=== PATIENT | male | born 1965 | race Caucasian/White ===

== ENCOUNTER 2019-04-07 09:33 | Outpatient (CLI) | payer OTHER ==
--- NOTE | 2019-04-07 11:49 | ULT ---
ULTRASOUND ABDOMEN: Date: 04/07/19 HISTORY: Lower abdominal pain. FINDINGS: The liver, spleen, gallbladder, kidneys, pancreas, urinary bladder, and visualized portions of the ao rta and IVC appear normal. The common duct measures 5 mm in diameter. No free fluid is seen. IMPRESSION: Normal exam. POS: [facility]
== END 2019-04-07 09:34 | disposition home or self-care (01) ==
LOC: ULT 09:33
PROVIDERS: ATTEND Nurse Practitioner Family
DX: R10.30 Lower abdominal pain, unspecified (principal)
CPT/HCPCS: 76856; 93975

== ENCOUNTER 2019-04-26 08:05 | Outpatient (CLI) | payer OTHER ==
--- NOTE | 2019-04-26 10:47 | CT ---
CT ABDOMEN AND PELVIS WITH ORAL AND IV CONTRAST: HISTORY: Mid abdominal pain. FINDINGS: The lung bases are clear. No calcified gallstones are seen. The liver, spleen, pancreas and adrenal g lands are normal. A tiny low density lesion is seen in either kidney, likely cyst. No free air, free fluid or lymphadenopathy is noted in the abdomen or pelvis. The small bowel loops are not abnormally dilated. A normal appearing appendix is seen. There are vasc ular calcifications without evidence of aneurysmal dilatation of the abdominal aorta. The prostate is enlarged. There are degenerative changes in the spine. IMPRESSION: No evidence of acute process. POS: [facility]
== END 2019-04-26 08:06 | disposition home or self-care (01) ==
LOC: BICCT 08:05
PROVIDERS: ATTEND Internal Medicine Gastroenterology
DX: Z12.11 Encounter for screening for malignant neoplasm of colon (principal); R10.30 Lower abdominal pain, unspecified
CPT/HCPCS: 74177

== ENCOUNTER 2019-11-21 08:13 | Outpatient (CLI) | payer OTHER ==
--- NOTE | 2019-11-21 09:46 | MRI ---
Exam: MRI thoracic spine without contrast HISTORY: Thoracic radiculopathy. FINDINGS: Appropriate T1 marrow signal intensity of the thoracic vertebra. Thoracic spine vertebral b araceli heights are maintained. No acute fractures. Mild changes along the superior and inferior endplate of T8, inferior endplate of T7, inferior endplate of T10, superior and inferior endplate of T11 and superior endplate of T12 likely represent chronic Schmorl's nodes. No significant STIR hyperintensity suggest edema. No significant STIR hyperintensity to suggest ligamentous injury Visualized mediastinum, lung parenchyma and solid organs of appropriate signal intensity Conus medullaris terminates at the breast L1 The thoracic cord has a normal size and signal intensity. No cord expansion. No cord malacia. Throughout the thoracic spine, no significant central canal stenosis or significant neural foraminal narrowing. IMPRESSION: No significant central canal stenosis or significant neural foraminal narrowing.
--- NOTE | 2019-11-21 10:15 | MRI ---
MRI lumbar spine noncontrast: HISTORY: Radiculopathy. Pain. COMPARISON: None FINDINGS: Appropriate T1 marrow signal intensity of the lumbar vertebra. Preserved vertebral body heights. No f racture. No significant STIR hyperintensity to suggest vertebral body edema or ligamentous injury. Appropriate signal intensity of the paraspinal muscles and solid organs. Conus medullaris terminates at the mid L1 level T12-L1:Adequate disc hydration. No posterior disc abnormality. No significant central canal stenosis or significant neural foraminal narrowing L1-L2:Adequate disc hydration. No posterior disc abnormality. No significant central canal stenosis o r significant neural foraminal narrowing L2-L3:Adequate disc hydration. Minimal left and right paracentral disc bulges. Encroachment upon bila teral subarticular zones, right greater than left. There is contact upon the traversing right L3 nerve root without significant mass effect or obscuration. Bilaterally, neural foramina are patent L3-L4:Minimal disc desiccation with minimal loss of disc space height. Broad-based disc bulge minimal ly flattens the ventral thecal sac. Mild ligamentum flavum thickening and facet hypertrophy. Trace amount of fluid in both facet joints. Disc material abuts but does not obscure either traversing L4 n erve root. Mild stenosis of the thecal sac. Mild bilateral neural foraminal narrowing due to disc material. L4-L5:Desiccation with moderate loss of disc space height. Broad-based disc bulge, ligament flavum th ickening and facet hypertrophy. Small amount of fluid in both facet joints. Mild stenosis of the thecal sac. Mass effect without obscuration the traversing right L5 nerve root. Mass effect and parti al obscuration the traversing left L5 nerve root. Moderate bilateral neural foraminal narrowing. L5-S1:Adequate disc hydration. Central disc herniation abuts the thecal sac. No significant central c anal stenosis. Moderate bilateral neural foraminal narrowing. IMPRESSION: Multilevel degenerative changes of the lumbar spine as detailed above.
== END 2019-11-21 08:14 | disposition home or self-care (01) ==
LOC: BICMRI 08:13
PROVIDERS: ATTEND Nurse Practitioner Family
DX: M54.15 Radiculopathy, thoracolumbar region (principal); M47.816 Spondylosis without myelopathy or radiculopathy, lumbar region
CPT/HCPCS: 72146; 72148